=== PATIENT | male | born 1990 | race Caucasian/White ===

== ENCOUNTER 2017-02-13 16:22 | Emergency (ER) | payer SELFPAY ==
[~2017-02-13] VITALS: Ht 195.6 cm; Wt 90.9 kg
[~2017-02-13 16:22] MED LIST: CEPHALEXIN500 M1 PO; DOXYCYCLINE 10100 MG PO; NAPROSYN500 MG PO; PERCOCET 325 MG1 TA2 PO; ULTRAM 50MG TAB50 MG PO
[2017-02-13 16:25] VITALS: BP 132/81; TEMP 98.9
[2017-02-13] MEDS ORDERED: ZANTAC 7575 MG PO (16:28)
[2017-02-13] MEDS ORDERED: PREDNISONE20 MG PO (18:05)
[2017-02-13] MEDS ORDERED: DOXYCYCLINE 10100 MG PO (18:05)
[2017-02-13] MEDS ORDERED: TUSS PO (18:05)
[2017-02-13 18:17] VITALS: PULSE 99
== END 2017-02-13 18:20 | disposition home or self-care (01) ==
LOC: COL.ER 16:22
DX: J40 Bronchitis, not specified as acute or chronic (principal); F17.220 Nicotine dependence, chewing tobacco, uncomplicated; J39.8 Other specified diseases of upper respiratory tract
CPT/HCPCS: J7512